=== PATIENT | female | born 1960 | race Caucasian/White ===

== ENCOUNTER 2017-12-28 07:46 | Day surgery (SDC) | payer BC ==
[2017-12-24 11:40] VITALS: BMI 28.3
[~2017-12-28 07:46] MED LIST: LACTATED RINGERS 1,000 ML IV SCH
[2017-12-28] MEDS ORDERED: LIDOCAINE 1% 20 ML VIAL (10MG/ML) FOR IV START INTRADERMA ONE (08:00)
[2017-12-28 08:12] VITALS: RESP 16; TEMP 97.3
[2017-12-28] MEDS ORDERED: PROPOFOL 10 MG/ML 20 ML VIAL IV ONE (08:52)
--- NOTE | 2017-12-28 08:56 | P.GSHP ---
History of Present Illness H&P Date: 12/28/17 Chief Complaint: History of colon cancer This a 57-year-old female referred from Mercedes Smith PA-C. Patient presents today for colonoscopy. She has a previous history of colon cancer. She had a resection approximately 8 years ago. Past Medical History Past Medical History: Asthma, Cancer, Skin Disorder, Thyroid Disorder Additional Past Medical History / Comment(s): IBS, HEMORRHOIDS, DIVERTICULITIS; RECTAL CA (06/2009), PSORIASIS SCALP. SEASONAL ALLERGIES AND SCENT ALLERGIES. BORDERLINE HTN OCC. History of Any Multi-Drug Resistant Organisms: None Reported Past Surgical History: Bowel Resection, Orthopedic Surgery Additional Past Surgical History / Comment(s): SURGERY FOR RECTAL CANCER 2009. COLONOSCOPY. 5TH FINGER RT HAND. PRECANCEROUS LESION NOSE. IODINE TX FOR THYROID. Past Anesthesia/Blood Transfusion Reactions: Previous Problems w/ Anesthesia Additional Past Anesthesia/Blood Transfusion Reaction / Comment(s): claustrophobia @ [facility]. HX got panicky when throat sprayed during last EGD - had severe coughing, gagging, aspirated. Smoking Status: Former smoker - Past Family History Mother Family Medical History: Cancer Father Family Medical History: Cancer Brother(s) Family Medical History: Cancer Additional Family Medical History / Comment(s): BOWEL, PROSTATE CA. Medications and Allergies Home Medications Medication Instructions Recorded Confirmed Type Ascorbic Acid [Vitamin C] 500 mg PO DAILY 07/14/13 12/28/17 History Atorvastatin Calcium [Lipitor] 10 mg PO HS 07/14/13 12/28/17 History Cholecalciferol [Vitamin D3] 1,000 unit PO DAILY 07/14/13 12/28/17 History Cyanocobalamin [Vitamin B-12] 1,000 mcg PO DAILY 07/14/13 12/28/17 History Qvar(Unknown Dose) 2 puff INHALATION BID PRN 07/14/13 12/28/17 History clonazePAM [KlonoPIN] 0.25 - 0.5 mg PO HS 07/14/13 12/28/17 History diphenhydrAMINE [Benadryl] 25 mg PO HS 07/14/13 12/28/17 History Albuterol Inhaler [Ventolin Hfa 1 - 2 puff INHALATION Q6HR PRN 12/14/15 History Inhaler] Glucosam/Bill-Msm1/C/[place]/Bosw 1 each PO DAILY 12/14/15 12/28/17 History [Glucosamine-Chondroitin Tablet] Collagen (Unknown Dose) 1 tab PO DAILY 12/24/17 12/28/17 History Vitamin E (Unknown Dose) 1 tab PO DAILY 12/24/17 12/28/17 History Voltaren (Unknown Dose) 1 tab PO DIRECTED PRN 12/24/17 12/28/17 History Allergies Allergy/AdvReac Type Severity Reaction Status Date / Time cefazolin Allergy Unknown Rash/Hives Verified 12/24/17 11:10 cephalexin [Cephalexin] Allergy Unknown Rash/Hives Verified 12/24/17 11:10 lavender (Lavandula Allergy Unknown Dyspnea Verified 12/24/17 11:10 angustifolia) [lavender] prednisone Allergy Unknown Rash/Hives Verified 12/24/17 11:10 meloxicam [From Mobic] Allergy Rash/Hives Verified 12/24/17 11:10 tuberculin, purified protein Allergy Rash/Hives Verified 12/24/17 11:10 deriva SCENTS AdvReac Dyspnea Uncoded 12/24/17 11:10 Surgical - Exam Vital Signs Temp Pulse Resp BP Pulse Ox 97.3 F L 77 16 152/74 98 12/28/17 08:07 12/28/17 08:07 12/28/17 08:07 12/28/17 08:07 12/28/17 08:07 - General well developed, no distress - Eyes PERRL - ENT normal pinna - Neck no masses - Respiratory normal expansion - Cardiovascular Rhythm: regular - Abdomen Abdomen: soft, non tender Assessment and Plan Assessment: History of colon cancer. We'll perform screening colonoscopy.
--- NOTE | 2017-12-28 09:12 | P.OP ---
Date of Procedure: 12/28/17 Preoperative Diagnosis: History of colon cancer Postoperative Diagnosis: Diverticulosis Procedure(s) Performed: Colonoscopy Anesthesia: MAC Surgeon: Gonzalez Garcia Pathology: none sent Condition: stable Disposition: PACU Description of Procedure: The patient was placed on the endoscopy table in the lateral position. She received IV sedation. Digital rectal exam was performed which revealed no abnormalities. The flexible colonoscope was then placed patient anus and passed throughout the entire colon. The ileocecal valve was visualized. The cecum, ascending and transverse colon appeared normal. In the descending colon there was some diverticular changes noted. There is no exit diverticulitis. The patient had a previous low anterior resection. The area of the colorectal anastomosis visualized. This appeared normal. The scope was then brought back the rectum and this appeared normal. Scope was withdrawn for patient.
[2017-12-28 09:31] VITALS: BP 131/69; PULSE 78
== END 2017-12-28 10:00 ==
LOC: ORWHC2ENDO 07:46
PROVIDERS: ATTEND Surgery
DX: Z12.11 Encounter for screening for malignant neoplasm of colon (principal); K57.30 Diverticulosis of large intestine without perforation or abscess without bleeding; Z98.0 Intestinal bypass and anastomosis status; Z85.048 Personal history of other malignant neoplasm of rectum, rectosigmoid junction, and anus; Z85.038 Personal history of other malignant neoplasm of large intestine; Z90.49 Acquired absence of other specified parts of digestive tract; J45.909 Unspecified asthma, uncomplicated; E07.9 Disorder of thyroid, unspecified; K58.9 Irritable bowel syndrome, unspecified; L40.9 Psoriasis, unspecified; E78.5 Hyperlipidemia, unspecified; I10 Essential (primary) hypertension; M19.90 Unspecified osteoarthritis, unspecified site; F41.9 Anxiety disorder, unspecified; Z87.19 Personal history of other diseases of the digestive system; Z79.899 Other long term (current) drug therapy; Z88.6 Allergy status to analgesic agent; Z88.1 Allergy status to other antibiotic agents; Z88.8 Allergy status to other drugs, medicaments and biological substances; Z91.09 Other allergy status, other than to drugs and biological substances; Z87.891 Personal history of nicotine dependence
CPT/HCPCS: J2704; G0105

== ENCOUNTER → 2022-01-16 | Outpatient (CLI) | payer BC ==
--- NOTE | 2022-01-16 14:45 | MM ---
Reason for Exam: Clinical finding. Last mammogram was performed 6 year(s) and 8 month(s) ago. Patient History: Menarche at age 11. First Full-Term at age 19. Postmenopausal. Colorectal cancer, age 49. Maternal aunt had breast cancer. Risk Values: Karen 5 year model risk: 1.1%. NCI Lifetime model risk: 5.8%. Prior Study Comparison: 05/22/2010 Bilateral Screening Mammogram, [facility]. 06/13/2011 Bilateral Screening Mammogram, [facility]. 01/21/2013 Bilateral Diagnostic Mammogram, [facility]. 05/11/2015 Bilateral Screening Mammogram, [facility]. 05/16/2015 Left Diagnostic Mammogram, [facility]. Tissue Density: The breast tissue is heterogeneously dense. This may lower the sensitivity of mammography. Findings: Analyzed By CAD. Palpable marker along the 11:00 position right breast shows a 6 mm benign oil cyst with eggshell calcification. Subareolar nodularity on the cc view right breast does not persist on additional views. Otherwise, no significant change from prior exams. Targeted ultrasound recommended that the patient's right breast palpable site to confirm benign oil cyst. Overall Assessment: Incomplete: need additional imaging evaluation, BI-RAD 0 Management: Diagnostic Breast Ultrasound of the right breast. As ordered for the patient's palpable abnormality. Electronically signed and approved by: Vivian Schaeffer M.D. Radiologist
--- NOTE | 2022-01-16 15:02 | USB ---
Reason for Exam: Clinical finding. Patient History: Menarche at age 11. First Full-Term at age 19. Postmenopausal. Colorectal cancer, age 49. Maternal aunt had breast cancer. Risk Values: Karen 5 year model risk: 1.1%. NCI Lifetime model risk: 5.8%. Technique: Method: Targeted. Prior Study Comparison: 01/21/2013 Bilateral Diagnostic Mammogram, [facility]. 05/11/2015 Bilateral Screening Mammogram, [facility]. 05/16/2015 Left Diagnostic Mammogram, [facility]. Findings: The upper section of the breast of the right breast, the axilla of the right breast and the retroareolar of the right breast were scanned. Targeted ultrasound of the patient's palpable site, 12:00 position 3 cm from the nipple. There is a benign boil cyst measuring 5 mm at the patient's palpable site just deep to the skin surface. No other solid or cystic lesion. Overall Assessment: Benign, BI-RAD 2 Management: Screening Mammogram of both breasts in 1 year. Further clinical management or any suspicious palpable area. The patient's palpable site at 12:00 corresponds to a benign oil cyst calcification. Patient should continue monthly self breast exams. Results were given to the patient verbally at the time of exam. Electronically signed and approved by: Vivian Schaeffer M.D. Radiologist
== END | disposition home or self-care (01) ==
LOC: RADMAMWWP 14:10
PROVIDERS: ATTEND Family Medicine
DX: N63.10 Unspecified lump in the right breast, unspecified quadrant (principal); N63.20 Unspecified lump in the left breast, unspecified quadrant; Z78.0 Asymptomatic menopausal state; Z80.3 Family history of malignant neoplasm of breast
CPT/HCPCS: 77062; 77066